=== PATIENT | male | born 1995 | race Caucasian/White ===

== ENCOUNTER → 2017-09-07 | Outpatient (CLI) | payer OTHER ==
--- NOTE | 2017-09-07 13:08 | DIAGNOSTIC IMAGING REPORT ---
ABDOMEN FOR HERNIA CLINICAL HISTORY: R19.09 hernia TECHNIQUE: Ultrasound pre and post Valsalva COMPARISON STUDY: None FINDINGS: Ultrasound confirms the presence of a fat-containing right inguinal hernia. There is a trace amount of reactive fluid within the hernia. There is no evidence of bowel containment. This hernia is reducible. IMPRESSION: Reducible fat-containing right inguinal hernia. The above report was generated using voice recognition software. It may contain grammatical, syntax or spelling errors. Electronically signed by: Yovanny Vargas M.D. 09/07/2017 1:07 PM Dictated Date/Time: 09/07/2017 1:04 PM
== END | disposition home or self-care (01) ==
LOC: C.ULTR 12:22
PROVIDERS: ATTEND Physical Medicine & Rehabilitation
DX: K40.90 Unilateral inguinal hernia, without obstruction or gangrene, not specified as recurrent (principal)